=== PATIENT | male | born 1940 | race African-American/Black ===

== ENCOUNTER 2017-01-04 18:58 | Emergency (ER) | payer OTHER ==
[~2017-01-04] VITALS: Ht 177.8 cm; Wt 81.7 kg
--- NOTE | ~2017-01-04 | EKG ---
[place] [address] [facility] [facility] [employer] [address] ELECTROCARDIOGRAM REPORT Name: SELENALEORA Garcia Room #: [facility] [id number] Admission: 01/04/17 Attend Phys: Discharge: 01/04/17 Date of : 44 Report #: [id number] THIS REPORT FOR: //name// [facility] ED Test Date: 2017-01-04 Test Time: 19:05:04 Pat Name: LEORA WALTERS Department: Room: Gender: M Butter Maker: [id number] : 1940 Requested By: Birseyda Nolasco Order Number: [id number] MD: Raffy Kyle Measurements Intervals [place] Rate: 79 P: -32 ND: 201 QRS: -41 QRSD: 88 T: -82 QT: 455 QTc: 522 Interpretive Statements Sinus rhythm 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
[2017-01-04 20:07] LABS: HEMATOCRIT 21.7 % (42.0-52.0); HEMOGLOBIN 7.4 gm/dL (14.0-18.0); MCH 30.7 pg (26.0-34.0); MCHC 34.2 g/dL (28.0-37.0); MCV 89.6 fL (80.0-100.0); RBC 2.43 mil/uL (4.50-6.00); WBC 4.3 thou/uL (4.0-11.0)
[2017-01-04] MEDS ORDERED: ROCALTROL0.25 MCG PO (20:11)
[2017-01-04] MEDS ORDERED: ALLOPURINOL 10100 M1 PO (20:11)
[2017-01-04 20:12] LABS: CALCIUM 7.9 mg/dL (8.5-10.1); CREATININE 3.8 mg/dL (0.7-1.3); POTASSIUM 4.2 mmol/L (3.5-5.1)
[2017-01-04] MEDS ORDERED: FENTANYL PA25 MCG/HR TRANSDERM (20:12)
[2017-01-04 20:13] LABS: MANUAL DIFF YES
[2017-01-04] MEDS ORDERED: LUPRON DEPOT22.5 MG IM (20:13)
[2017-01-04] MEDS ORDERED: MIRALAX255 GM PO (20:14)
[2017-01-04] MEDS ORDERED: ZYTIGA250 MG PO (20:14)
[2017-01-04] MEDS ORDERED: DEXAMETHASONE 22 M1 PO (20:15)
[2017-01-04] MEDS ORDERED: GABAPENTIN 100100 MG PO (20:15)
[2017-01-04] MEDS ORDERED: CARVEDILOL12.5 MG PO (20:15)
[2017-01-04] MEDS ORDERED: SENEXON-S TABL1 EACH PO (20:18)
[2017-01-04] MEDS ORDERED: NEPHRO-VITE RX1 TA1 PO (20:18)
[2017-01-04] MEDS ORDERED: TUMS PO (20:19)
[2017-01-04] MEDS ORDERED: TYLENOL325 MG PO (20:19)
[2017-01-04] MEDS ORDERED: BISAC-EVAC10 MG RC (20:19)
[2017-01-04] MEDS ORDERED: HYDROMORPH PO (20:20)
[2017-01-04] MEDS ORDERED: ONDANSETRON HCL4 M2 PO (20:20)
[2017-01-04 20:54] LABS: ABSOLUTE NEUTROPHILS 2.3 thou/uL (1.4-8.2); TOTAL CELL COUNT 100
[2017-01-04 20:55] LABS: PLATELET COUNT 85 thou/uL (150-400); POLYCHROMASIA 1+
[2017-01-04] MEDS ORDERED: NORCO 5-325 TA1 EACH PO (21:08)
[2017-01-04 21:59] VITALS: BP 136/70
== END 2017-01-04 22:01 | disposition home or self-care (01) ==
LOC: ER 18:58
PROVIDERS: Emergency Medicine
DX: M54.9 Dorsalgia, unspecified (principal); N18.6 End stage renal disease; Z99.2 Dependence on renal dialysis; Z85.46 Personal history of malignant neoplasm of prostate; Z88.8 Allergy status to other drugs, medicaments and biological substances